=== PATIENT | male | born 1975 | race Caucasian/White ===

== ENCOUNTER 2017-09-27 16:41 | Emergency (ER) | payer BC ==
[2017-09-27] MEDS: ACETAMINOPHEN 500 MG TAB PO (19:52)
[2017-09-27] MEDS: KETOROLAC 60 MG INJ IM (19:53)
[2017-09-27] MEDS: GUAIFENESIN/DM 5ML CUP PO (19:55)
== END 2017-09-27 20:37 | disposition home or self-care (01) ==
LOC: FTE 16:41
DX: J20.9 Acute bronchitis, unspecified (principal)
CPT/HCPCS: 96372; 99284-25